=== PATIENT | male | born 1955 | race Caucasian/White ===

== ENCOUNTER → 2019-06-12 13:30 | Outpatient (BNVA) | payer MEDICARE, OTHER, SELFPAY | PROVIDERS: Family Provider Family Medicine; PCP Family Medicine; Visit Provider Nurse Practitioner | DX: F90.0 Attention-deficit hyperactivity disorder, predominantly inattentive type (principal) | CPT/HCPCS: 99213 ==

== ENCOUNTER 2019-08-17 14:17 | Emergency (ER) | payer MEDICARE, OTHER, SELFPAY ==
[2019-08-17 14:21] VITALS: BP 184/106; PULSE 89; RESP 18; TEMP 36.6; O2SAT 94; BMI 26.6
--- NOTE | 2019-08-17 14:27 | W.ED.HEATRA ---
HPI - Head Injury General: Stated complaint: head lac Time Seen by Provider: 08/17/19 14:27 Source: patient Mode of arrival: ambulatory Limitations: no limitations Review of Systems General: Reports: 10 or more systems reviewed and unremarkable except in HPI and below PFSH ED PFSH: Medical History (Updated 06/12/19 @ 14:03 by VEGA Martinez) Attention-deficit hyperactivity disorder, predominantly inattentive type Social History (Updated 06/12/19 @ 13:50 by Nadya Maharaj LPN) Smoking and tobacco status: never smoked Physical Exam Const: COMMON NORMALS: no acute distress and patient oriented x3 GENERAL APPEARANCE: cooperative HENMT: COMMON NORMALS: normocephalic, TM's normal bilaterally and Normal external nose present HEAD & SCALP: normal to inspection and normocephalic NOSE: Normal external nose present TYMPANIC MEMBRANE: TM's normal bilaterally MOUTH: Normal oral and palatal mucosa present THROAT: posterior oropharynx normal Eye: GENERAL EYE: appearance normal, both eyes and all related structures Neck/C-Spine: COMMON NORMALS: full ROM Lymph: LYMPHATIC: no lymphadenopathy noted Chest: COMMONS NORMALS: normal inspection of the chest Resp: COMMON NORMALS: normal respiratory effort EFFORT & INSPECTION: Yes able to speak in complete sentences Cardio: COMMON NORMALS: regular rate and regular rhythm RATE: regular rate RHYTHM: regular rhythm GI: COMMON NORMALS: non-tender : COMMON NORMALS: Yes no CVA tenderness BLADDER/KIDNEY EXAM: Yes no CVA tenderness Back/Pelvis: COMMON NORMALS: no CVA tenderness and thoracic and lumbar spine normal to inspection Extremity: COMMON NORMALS: normal to inspection Neuro: COMMON NORMALS: patient oriented x3 and moves all extremities Psych: COMMON NORMALS: mental status grossly normal and cooperative Skin: COMMON NORMALS: no rashes or lesions noted GENERAL SKIN EXAM: no rashes or lesions noted Discharge Plan Discharge Prescriptions: No Action methylphenidate HCl [Concerta] 27 mg tablet extended release 24hr 27 mg PO DAILY RF: 0 hydrochlorothiazide 25 mg tablet 25 mg PO DAILY RF: 0 diazepam 5 mg tablet 5 mg PO .in gary PRN (Reason: anxiety) Qty: 90 RF: 0 eszopiclone [Lunesta] 2 mg tablet 2 mg PO .at bed PRN (Reason: sleep) Qty: 90 RF: 0 Coding Level of Care Code ED Data Collection Interviewer for Nazanin Davis
--- NOTE | 2019-08-17 14:30 | CT_ITS ---
WS: [id number] CT HEAD TECHNIQUE: Noncontrast CT of the head obtained from the skullbase to the vertex. CLINICAL INFORMATION: trame w LOC COMPARISON: None. DLP: 846.[address] scans at [facility] use at least one of these dose optimization techniques: automat ed exposure control; mA and/or kV adjustment per patient size (includes targeted exams where dose is matched to clinical indication); or iterative reconstruction. FINDINGS: No evidence of intracranial hemorrhage or mass effect. Ventricular system and basal cisterns are arnold nt. Mild small vessel changes with mild parenchymal volume loss. No extra-axial fluid collections. No evidence of mass or mass effect. Normal bhat-white differentiation. Paranasal sinuses and mastoid air cells are well aerated. . Soft tissue edema with small right fronta l scalp hematoma. No fractures. Notified Hussein Goss DO at 08/17/2019 3:[address]/CT head wo con* [id number] IMPRESSION: 1. No evidence of intracranial hemorrhage or mass effect. 2. Mild small vessel changes with mild parenchymal volume loss. 3. Soft tissue edema with scalp hematoma overlying the right frontal bone.
--- NOTE | 2019-08-17 14:42 | W.ED.WOUNDLC ---
HPI - Wound/Laceration General: Chief Complaint: Wound/Laceration Stated Complaint: head lac Time Seen by Provider: 08/17/19 14:27 History of Present Illness: HPI narrative: 64-year-old male [place] and was struck on the left parietal area by a golf ball. He was rendered unconscious for a brief period of time. He is not on any blood thinners he is not having any vomiting he is somewhat nauseous no visual changes it happened just prior to arrival here. No other specific injuries. Onset (ago): minute(s) Place: park ([place]) Patient tetanus UTD: No Context: accidental Associated symptoms: Reports no associated symptoms; Denies chills, fever(s), nausea or vomiting Treatments prior to arrival: cold therapy Review of Systems Const: Denies: fever(s), chills, body aches, change in appetite, fatigue or malaise ENMT: Denies: throat pain, ear or mastoid pain, nasal discharge or nasal congestion Card: Denies: chest pain, edema, dyspnea on exertion or orthopnea Resp: Denies: dyspnea, productive cough or non-productive cough GI: Denies: abdominal pain, nausea, vomiting, hematemesis, coffee ground emesis, diarrhea, constipation, bloating, hematochezia or melena : Denies: flank pain, dysuria, urinary frequency or urinary urgency Skin/Breast: Denies: rash or pruritus [facility] ED PFSH: Medical History (Updated 08/17/19 @ 15:06 by Hussein Goss DO) Attention-deficit hyperactivity disorder, predominantly inattentive type Social History (Updated 06/12/19 @ 13:50 by Nadya Maharaj LPN) Smoking and tobacco status: former smoker Physical Exam Const: COMMON NORMALS: no acute distress GENERAL APPEARANCE: cooperative and comfortable ORIENTATION/CONSCIOUSNESS: Yes awake, Yes oriented to person, Yes oriented to place and Yes oriented to time HENMT: COMMON NORMALS: normocephalic, hearing grossly normal bilaterally, external ears normal, EAC's normal, TM's normal bilaterally, Normal nasal mucous membranes and turbinates present, moist oral mucous membranes and oropharynx normal HEAD & SCALP: normocephalic and other (Abrasion on the right side of the head right of the midline. There is no active bleeding appears to be a shallow laceration there is no gaping.) NOSE: Normal nasal mucous membranes and turbinates present EXTERNAL EAR: Yes external ears normal EXTERNAL AUDITORY CANAL: EAC's normal TYMPANIC MEMBRANE: TM's normal bilaterally Eye: COMMON NORMALS: Equal, round and reactive pupils present, EOMs intact bilaterally, conjunctivae normal and no scleral icterus CONJUNCTIVA: Yes conjunctivae normal PUPIL: Yes Equal, round and reactive pupils present Neck/C-Spine: COMMON NORMALS: full ROM, no lymphadenopathy, supple and no JVD Lymph: LYMPHATIC: no lymphadenopathy noted and no lymphedema noted Resp: COMMON NORMALS: normal respiratory effort, No retractions, No use of accessory muscles and clear to auscultation bilaterally AUSCULTATION: clear to auscultation bilaterally Cardio: COMMON NORMALS: no JVD, regular rate, regular rhythm and No murmurs present (Cardio) RATE: regular rate RHYTHM: regular rhythm GI: COMMON NORMALS: Soft to palpation and No hepatosplenomegaly present AUSCULTATION: Yes normoactive bowel sounds PALPATION: Yes Soft to palpation, No Tenderness to palpation present (GI), No Guarding due to palpation present (GI) and Yes No hepatosplenomegaly present Extremity: COMMON NORMALS: normal to inspection, capillary refill normal, no clubbing, cyanosis or edema, no calf tenderness and no pedal edema Neuro: SENSORIUM/ORIENTATION: Yes oriented to person, Yes oriented to place and Yes oriented to time Skin: COMMON NORMALS: no rashes or lesions noted GENERAL SKIN EXAM: no rashes or lesions noted Course Vital Signs: Vital signs: Vital Signs Temperature 97.8 F 08/17/19 14:21 Pulse Rate 89 08/17/19 14:21 Respiratory Rate 18 08/17/19 15:04 Blood Pressure 184/106 08/17/19 14:21 Pulse Oximetry 94 08/17/19 14:21 MDM - Wound/Laceration MDM Narrative: Medical decision making narrative: Bleeding on think there is much to be gained by putting sutures or hanna in the area in the head discussed with the patient he was okay with that we will update his tetanus reviewed his CT findings which were negative he is awake alert and oriented now we will discharge him home with ice him avoid any further narcotics and so will cause nausea and also cause lethargy both of which are symptoms we discussed with him watching for return if he has any problems. apply topical [id number] antibiotic ointments to the abrasion on the scalp until healed. Discharge Plan Discharge Patient Disposition: Home, Self-Care Clinical Impression: Struck by golf ball, initial encounter, Injury while playing golf Condition: Stable Prescriptions: New diclofenac sodium 75 mg tablet,delayed release (DR/EC) 75 mg PO Q12H PRN (Reason: pain) Qty: 20 RF: 0 No Action methylphenidate HCl [Concerta] 27 mg tablet extended release 24hr 27 mg PO DAILY RF: 0 hydrochlorothiazide 25 mg tablet 25 mg PO DAILY RF: 0 diazepam 5 mg tablet 5 mg PO .in gary PRN (Reason: anxiety) Qty: 90 RF: 0 eszopiclone [Lunesta] 2 mg tablet 2 mg PO .at bed PRN (Reason: sleep) Qty: 90 RF: 0 Discharge Orders: Discharge Order (Routine); Ordered 08/17/19 Ordered By: Hussein Goss Referrals: Stephon Narvaez MD [Family Provider] - Discharge Diet: Usual diet Discharge Activity: Increase activity as tolerated Activity Restrictions/Additional Instructions: Ith to the affected area. Topical antibiotic ointment as needed follow-up with your primary care doctor if you have any worsening symptoms or develop any nausea or vomiting return to the emergency room. Coding Level of Care Code ED Artist And Repertoire Manager for Nazanin Davis Exam Comprehensive
[2019-08-17] MEDS: tetanus-dipt-pertussis 0.5 mL SDV IM (14:48)
[2019-08-17] MEDS: ondansetron 4 MG Tablet PO (15:03)
[2019-08-17 15:04] VITALS: RESP 18
[2019-08-17] MEDS: morphine 4 mg/mL SDV 1 mL IM (15:04)
[2019-08-17 15:15] VITALS: BP 163/101; PULSE 70; RESP 18; O2SAT 97
== END 2019-08-17 15:15 | disposition home or self-care (01) ==
LOC: ER 15:34
PROVIDERS: Emergency Provider Family Medicine; Family Provider Family Medicine; PCP Family Medicine
DX: S01.81XA Laceration without foreign body of other part of head, initial encounter (principal); W21.04XA Struck by golf ball, initial encounter; Z87.891 Personal history of nicotine dependence; Z23 Encounter for immunization
CPT/HCPCS: 12345; 70450; 90471; 90715; 96372; 99281; 99283; J2270; Q0162

== ENCOUNTER → 2019-09-13 07:41 | Outpatient (BNVA) | payer MEDICARE, OTHER, SELFPAY | PROVIDERS: Family Provider Family Medicine; PCP Family Medicine; Visit Provider Nurse Practitioner | DX: F90.0 Attention-deficit hyperactivity disorder, predominantly inattentive type (principal) | CPT/HCPCS: 99213 ==

== ENCOUNTER → 2020-02-15 08:26 | Outpatient (BNVA) | payer MEDICARE, OTHER, SELFPAY | PROVIDERS: Family Provider Family Medicine; PCP Family Medicine; Visit Provider Nurse Practitioner | DX: F90.0 Attention-deficit hyperactivity disorder, predominantly inattentive type (principal) | CPT/HCPCS: 99213 ==

== ENCOUNTER → 2020-05-31 07:58 | Outpatient (BNVA) | payer MEDICARE, OTHER, SELFPAY | PROVIDERS: Family Provider Family Medicine; PCP Family Medicine; Visit Provider Nurse Practitioner | DX: F90.0 Attention-deficit hyperactivity disorder, predominantly inattentive type (principal); G47.00 Insomnia, unspecified; F41.1 Generalized anxiety disorder | CPT/HCPCS: 99214 ==

== ENCOUNTER → 2020-09-18 08:53 | Outpatient (BNVA) | payer MEDICARE, OTHER, SELFPAY | PROVIDERS: Family Provider Family Medicine; PCP Family Medicine; Visit Provider Nurse Practitioner | DX: F90.0 Attention-deficit hyperactivity disorder, predominantly inattentive type (principal); G47.00 Insomnia, unspecified; F41.1 Generalized anxiety disorder | CPT/HCPCS: 99214 ==

== ENCOUNTER → 2020-12-24 07:52 | Outpatient (BNVA) | payer MEDICARE, OTHER, SELFPAY | PROVIDERS: Family Provider Family Medicine; PCP Family Medicine; Visit Provider Nurse Practitioner | DX: F41.1 Generalized anxiety disorder (principal); F90.0 Attention-deficit hyperactivity disorder, predominantly inattentive type; G47.00 Insomnia, unspecified | CPT/HCPCS: 99214 ==

== ENCOUNTER 2021-03-19 12:27 | Emergency (ER) | payer OTHER, MEDICARE, SELFPAY ==
[2021-03-19 12:36] VITALS: BP 140/94; PULSE 100; RESP 18; TEMP 37.1; O2SAT 93; BMI 25.3
--- NOTE | 2021-03-19 12:48 | W.ED.HA ---
HPI - Headache General: Chief Complaint: Headache Stated Complaint: H/A X 15 DAYS Time Seen by Provider: 03/19/21 12:41 History of Present Illness: HPI Narrative: Patient says scalp on left side both ears been tender x14 days. Says Tylenol and ibuprofen is not helping much. Denies any neurological symptoms. Does have a visit with chiropractor because of arthritis. MD elicited complaint: other (Scalp pain) Onset (ago): day(s) Onset description: gradually Location: left and occipital Severity: mild Quality & Timing: sharp (Hurts when he touches it, when he blinks, when he coughs.) and intermittent Exacerbating factors: other (Touching and cough and blinking) Associated symptoms: Reports no associated symptoms; Deny chest pain, fever(s), nausea, rash or vomiting Review of Systems Const: Denies: fever(s), chills or body aches Eyes: Denies: change in vision or blurry vision ENMT: Denies: throat pain or nasal congestion Card: Denies: chest pain or dyspnea on exertion Resp: Denies: dyspnea, productive cough or non-productive cough GI: Denies: abdominal pain, nausea or vomiting : Denies: difficulty urinating Musc: Reports: neck pain (Chronic does have chiropractor appointment coming up.) and back pain; Denies: extremity pain Skin/Breast: Reports: other (Has pain to the skin above his left ear.); Denies: rash Neuro: Denies: headache(s) Psych: Denies: anxiety or depression Benedict/Lymph: Denies: easy bruising PFS ED PFSH: Medical History (Updated 03/19/21 @ 12:48 by BHAVNA Hall) Attention-deficit hyperactivity disorder, predominantly inattentive type Generalized anxiety disorder Insomnia Psychiatric care Social History (Updated 06/12/19 @ 13:50 by Nadya Maharaj LPN) Smoking and tobacco status: former smoker Physical Exam Const: COMMON NORMALS: no acute distress, average body habitus and patient oriented x3 HENMT: COMMON NORMALS: normocephalic HEAD & SCALP: normal to inspection and normocephalic FACE & SINUS: normal facial exam Eye: COMMON NORMALS: Equal, round and reactive pupils present and conjunctivae normal GENERAL EYE: appearance normal, both eyes and all related structures CONJUNCTIVA: Yes conjunctivae normal PUPIL: Yes Equal, round and reactive pupils present Neck/C-Spine: COMMON NORMALS: full ROM, no lymphadenopathy and no JVD CERVICAL SPINE: Yes cervical ROM normal and Yes Paracervical muscle tenderness right Chest: COMMONS NORMALS: normal inspection of the chest Resp: COMMON NORMALS: normal respiratory effort Cardio: COMMON NORMALS: no JVD, regular rate and regular rhythm RATE: regular rate RHYTHM: regular rhythm GI: COMMON NORMALS: Normal to inspection, nondistended, normoactive bowel sounds present Extremity: COMMON NORMALS: normal to inspection and full ROM Neuro: COMMON NORMALS: patient oriented x3 and moves all extremities Skin: OTHER: No redness, no lymphadenopathy. Does have skin tenderness above the left ear. Course Vital Signs: Vital signs: Vital Signs Temperature 98.7 F 03/19/21 12:36 Pulse Rate 100 03/19/21 12:36 Respiratory Rate 18 03/19/21 12:36 Blood Pressure 140/94 03/19/21 12:36 Pulse Oximetry 93 03/19/21 12:36 Discharge Plan Discharge Patient Disposition: Home Clinical Impression: Headache Qualifiers: Headache type: unspecified Headache chronicity pattern: acute headache Intractability: not intractable Qualified Code(s): R51.9 - Headache, unspecified Condition: Stable Prescriptions: New Celebrex 100 mg capsule 100 mg PO BID Qty: 20 RF: 0 Voltaren Arthritis Pain 1 % gel 4 g topical QID Qty: 100 RF: 0 Discontinued diclofenac sodium 75 mg tablet,delayed release (DR/EC) 75 mg PO Q12H PRN (Reason: pain) Qty: 20 RF: 0 No Action hydrochlorothiazide 25 mg tablet 25 mg PO DAILY RF: 0 eszopiclone [Lunesta] 2 mg tablet 2 mg PO .at bed PRN (Reason: sleep) Qty: 90 RF: 0 diazepam 5 mg tablet 5 mg PO .in gary PRN (Reason: anxiety) Qty: 90 RF: 0 Discharge Orders: Discharge ED (Routine); Ordered 03/19/21 Ordered By: Wagner Wesley Referrals: Kendrick Painting DO [Primary Care Provider] - Discharge Diet: Usual diet Discharge Activity: Increase activity as tolerated Activity Restrictions/Additional Instructions: Follow-up with medical provider as directed. Take medications as prescribed. Return to the ER or your medical provider if condition worsens. Please read and understand discharge instructions. If any questions ask please. Follow-up with chiropractor as scheduled Coding Level of Care Code ED Raking Machine Operator for Nazanin Davis
[2021-03-19 13:10] VITALS: BP 140/94; PULSE 104; RESP 16; O2SAT 96
== END 2021-03-19 13:17 | disposition home or self-care (01) ==
PROVIDERS: Emergency Provider Nurse Practitioner Family; PCP Emergency Medicine Emergency Medical Services
DX: R51.9 Headache, unspecified (principal); Z87.891 Personal history of nicotine dependence
CPT/HCPCS: 99282

== ENCOUNTER → 2021-03-25 07:25 | Outpatient (BNVA) | payer MEDICARE, OTHER, SELFPAY | PROVIDERS: PCP Emergency Medicine Emergency Medical Services; Visit Provider Nurse Practitioner | DX: F90.0 Attention-deficit hyperactivity disorder, predominantly inattentive type (principal); F41.1 Generalized anxiety disorder; G47.00 Insomnia, unspecified | CPT/HCPCS: 99214 ==

== ENCOUNTER → 2021-06-12 14:08 | Outpatient (BNVA) | payer MEDICARE, OTHER, SELFPAY | PROVIDERS: PCP Emergency Medicine Emergency Medical Services; Visit Provider Nurse Practitioner | DX: F90.0 Attention-deficit hyperactivity disorder, predominantly inattentive type (principal); F41.1 Generalized anxiety disorder; G47.00 Insomnia, unspecified | CPT/HCPCS: 99214 ==

== ENCOUNTER → 2021-08-05 13:34 | Outpatient (BNVA) | payer MEDICARE, OTHER, SELFPAY | PROVIDERS: PCP Family Medicine; Visit Provider Family Medicine | DX: R21 Rash and other nonspecific skin eruption (principal); I10 Essential (primary) hypertension | CPT/HCPCS: 80053; 85025; 86618; 86666; 86757 ==

== ENCOUNTER → 2021-08-21 10:52 | Outpatient (BNVA) | payer MEDICARE, OTHER, SELFPAY | PROVIDERS: PCP Family Medicine; Visit Provider Family Medicine | DX: R21 Rash and other nonspecific skin eruption (principal); I10 Essential (primary) hypertension | CPT/HCPCS: 86618; 86666; 86757 ==

== ENCOUNTER → 2021-09-16 07:32 | Outpatient (BNVA) | payer MEDICARE, OTHER, SELFPAY | PROVIDERS: PCP Family Medicine; Visit Provider Nurse Practitioner | DX: F90.0 Attention-deficit hyperactivity disorder, predominantly inattentive type (principal); F41.1 Generalized anxiety disorder; G47.00 Insomnia, unspecified | CPT/HCPCS: 99214 ==

== ENCOUNTER 2022-04-15 11:55 | Outpatient (CLI) | payer MEDICARE, OTHER, SELFPAY ==
--- NOTE | 2022-04-15 12:02 | USCV_ITS ---
Chuckie Gonsalez Age: 67 Gender: M : 1955 Exam Date: 04/15/2022 12:12 Ordering Phys: Kendrick Painting DO Technologist: [place] [facility] [place] HISTORY: Diameter (cm) AP x Transverse x Length Velocity (cm/s) Waveform Prox Aorta: 2.52 x 2.35 x Biphasic Mid Aorta: 2.27 x 2.08 x 77.70 Biphasic Distal Aorta: 3.20 x 3.27 x 59.50 Biphasic Right Iliac Prox: 1.51 x 1.45 x 48.80 Biphasic Left Iliac Prox: 1.36 x 1.48 x 54.50 Biphasic Stent Prox Landing x x Aneurysmal Sac Max x x Lt Lat Sac Dim Rt Lat Sac Dim Stent Dist Landing x x Right Iliac Stent x x Left Iliac Stent x x Right Renal Art Left Renal Art FINDINGS: Ectatic abdominal aorta with evidence of atherosclerotic plaque noted. A fusiform abdominal aortic aneurysm is noted with a maximal diameter of 3.3 cm. No evidence of periaortic fluid is detected. There is no evidence of right common iliac artery stenosis. There is no evidence of left common iliac artery stenosis. CONCLUSIONS Minimal, 3.[address] Janna Morales DO (Electronically Signed) Final Date: 15 April 2022 13:45 S
== END 2022-04-15 11:56 | disposition home or self-care (01) ==
LOC: RAD 11:57
PROVIDERS: PCP Family Medicine; Visit Provider Emergency Medicine Emergency Medical Services
DX: I71.40 Abdominal aortic aneurysm, without rupture, unspecified (principal)
CPT/HCPCS: 93978

== ENCOUNTER → 2022-11-24 11:17 | Outpatient (BNVA) | payer MEDICARE, OTHER, SELFPAY | PROVIDERS: PCP Family Medicine; Visit Provider Family Medicine | DX: R41.3 Other amnesia (principal); R53.83 Other fatigue; E55.9 Vitamin D deficiency, unspecified; E78.5 Hyperlipidemia, unspecified | CPT/HCPCS: 80053; 80061; 82306; 82607; 84443; 85025 ==

== ENCOUNTER → 2023-04-29 14:59 | Outpatient (BNVA) | payer OTHER, MEDICARE, SELFPAY | PROVIDERS: PCP Family Medicine; Visit Provider Family Medicine | DX: F32.A Depression, unspecified (principal); E03.9 Hypothyroidism, unspecified; E55.9 Vitamin D deficiency, unspecified | CPT/HCPCS: 82306; 84443 ==

== ENCOUNTER → 2023-11-17 13:57 | Outpatient (BNVA) | payer MEDICARE, OTHER, SELFPAY | PROVIDERS: PCP Family Medicine; Visit Provider Family Medicine | DX: F32.A Depression, unspecified (principal); E11.9 Type 2 diabetes mellitus without complications; E03.9 Hypothyroidism, unspecified; E55.9 Vitamin D deficiency, unspecified | CPT/HCPCS: 80053; 82306; 84443 ==

== ENCOUNTER 2023-12-31 16:33 | Outpatient (CLI) | payer OTHER, SELFPAY ==
--- NOTE | 2023-12-31 16:44 | USCV_ITS ---
NiltonChuckie newby Age: 68 Gender: M : 1955 Exam Date: 12/31/2023 16:57 Ordering Phys: Mikki Mack MD Technologist: CT Exam Location: [facility] – [place] Indication: aaa HISTORY: Diameter (cm) AP x Transverse x Length Velocity (cm/s) Waveform Prox Aorta: 2.60 x 2.30 x 66.90 Mid Aorta: 2.20 x 2.20 x 58.30 Distal Aorta: 3.20 x 3.20 x 60.80 Right Iliac Prox: 1.30 x 1.30 x 50.90 Left Iliac Prox: 1.30 x 1.30 x 129.80 Stent Prox Landing x x Aneurysmal Sac Max x x Lt Lat Sac Dim Rt Lat Sac Dim Stent Dist Landing x x Right Iliac Stent x x Left Iliac Stent x x Right Renal Art Left Renal Art FINDINGS: CONCLUSIONS Distal AAA measuring 3.2 x 3.2cm Normal iliac arteries Moderate atheromatous disease Erasmo Cary MD (Electronically Signed) Final Date: 04 January 2024 12:26 S
== END 2023-12-31 16:34 | disposition home or self-care (01) ==
LOC: RAD 16:33
PROVIDERS: PCP Family Medicine; Visit Provider Family Medicine
DX: Z13.6 Encounter for screening for cardiovascular disorders (principal); I70.0 Atherosclerosis of aorta
CPT/HCPCS: 76706